=== PATIENT | male | born 1980 | race Caucasian/White ===

== ENCOUNTER 2020-11-23 08:00 | Outpatient (CLI) | payer BC ==
[2020-11-23 20:02] LABS: H. PYLORIS ANTIGEN STL NEGATIVE (Negative)
== END 2020-11-23 23:59 | disposition home or self-care (01) ==
LOC: LAB.R 08:00
PROVIDERS: ATTEND Internal Medicine
DX: K21.9 Gastro-esophageal reflux disease without esophagitis (principal); K58.9 Irritable bowel syndrome, unspecified
CPT/HCPCS: 36415; 85025; 87338

== ENCOUNTER 2020-11-23 12:35 | Outpatient (CLI) | payer BC ==
[2020-11-23 14:32] LABS: BASOPHILS % (AUTO) 0.3 %; EOSINOPHILS # (AUTO) 0.1 10^3/uL (0.0-0.7); HCT - HEMATOCRIT 47.9 % (42.0-52.0); HGB - HEMOGLOBIN 16.1 g/dL (14.0-18.0); LYMPHOCYTES # (AUTO) 2.7 10^3/uL (1.5-3.5); LYMPHOCYTES % (AUTO) 45.5 %; MEAN CORPUSCULAR HGB CONC 33.6 g/dL (32.0-36.0); MEAN CORPUSCULAR VOLUME 95.2 fL (80.0-94.0); MEAN PLATELET VOLUME 9.6 fL (7.4-11.4); MONOCYTES # (AUTO) 0.3 10^3/uL (0.0-1.0); MONOCYTES % (AUTO) 5.6 %; NEUTROPHILS # (AUTO) 2.7 10^3/uL (1.5-6.6); NEUTROPHILS % (AUTO) 46.3 %; PLT - PLATELET COUNT 278 10^3/uL (130-450); RED BLOOD COUNT 5.03 10^6/uL (4.70-6.10); RED CELL DISTRIBUTION WIDTH 11.7 % (12.0-15.0); WHITE BLOOD COUNT 5.9 x10^3/uL (4.8-10.8)
== END 2020-11-23 12:36 | disposition home or self-care (01) ==
LOC: LAB.S 12:35
PROVIDERS: ATTEND Internal Medicine
DX: K21.9 Gastro-esophageal reflux disease without esophagitis (principal); K58.9 Irritable bowel syndrome, unspecified
CPT/HCPCS: 36415; 85025

== ENCOUNTER 2021-05-07 11:42 | Outpatient (CLI) | payer BC ==
[2021-05-07 15:34] LABS: CHOLESTEROL 258 mg/dL; HDL CHOLESTEROL 43 mg/dL; LDL CHOLESTEROL,CALCULATED 198 mg/dL; LDL/HDL RATIO 4.6 (<3.6); TRIGLYCERIDES 83 mg/dL; VLDL CHOLESTEROL 17 mg/dL
[2021-05-07 20:49] LABS: ESTIMATED AVERAGE GLUCOSE 111 mg/dL (70-100); HEMOGLOBIN A1c% 5.5 % (4.27-6.07)
[2021-05-08 10:00] LABS: HEPATITIS C ANTIBODY NON-REACTIVE (NON-REACTIVE)
== END 2021-05-07 11:43 | disposition home or self-care (01) ==
LOC: LAB.S 11:42
PROVIDERS: ATTEND Internal Medicine
DX: Z12.5 Encounter for screening for malignant neoplasm of prostate (principal); Z13.1 Encounter for screening for diabetes mellitus; Z11.59 Encounter for screening for other viral diseases; Z13.220 Encounter for screening for lipoid disorders
CPT/HCPCS: 36415; 80061; 83036; 83721; 84153; 86803

== ENCOUNTER 2021-09-19 18:39 | Outpatient (CLI) | payer BC ==
--- NOTE | 2021-09-20 09:13 | Ultrasound Report ---
PROCEDURE: Testicle INDICATIONS: MASS OF TESTICLE TECHNIQUE: Real-time scanning was performed of the scrotum and testicles, with image documentation. Color and p ulse Doppler interrogation was performed of both testicles. COMPARISON: None. FINDINGS: Right hemiscrotum: The testis measures 4.7 x 2.1 x 3.5 cm. Homogeneous echotexture. A few scatter ed microcalcifications are seen. Normal venous and arterial flow. Small right hydrocele and varicocele. No significant abnormality of the epididymis. Left hemiscrotum: The testis measures 4.5 x 2.4 x 3.2 cm. Homogeneous echotexture. Normal venous and arterial flow. No hydrocele. Small varicocele. No significant abnormality of the epididymis. IMPRESSION: 1.Small bilateral varicoceles. 2.Small right hydrocele. 3.Limited right microlithiasis. Correlation with patient's risk factors to determine follow-up. Reviewed by: Parker Torre MD on 09/20/2021 9:11 AM PDT Approved by: Parker Torre MD on 09/20/2021 9:11 AM PDT Station ID: [id number]
== END 2021-09-19 18:40 | disposition home or self-care (01) ==
LOC: DI 18:39
PROVIDERS: ATTEND Urology
DX: N50.89 Other specified disorders of the male genital organs (principal); I86.1 Scrotal varices; N43.3 Hydrocele, unspecified

== ENCOUNTER 2022-12-06 13:41 | Outpatient (CLI) | payer BC ==
--- NOTE | 2022-12-06 14:33 | XRAY Report ---
PROCEDURE: Chest 2 View X-Ray INDICATIONS: CHEST PAIN TECHNIQUE: 2 views of the chest were acquired. COMPARISON: None. FINDINGS: Surgical changes and devices: None. Lungs and pleura: No pleural effusions or pneumothorax. Lungs are clear. Mediastinum: Mediastinal contours appear normal. Heart size is normal. Bones and chest wall: No suspicious bony lesions. Overlying soft tissues appear unremarkable. IMPRESSION: No acute cardiopulmonary process. Reviewed by: Estela Meng MD on 12/06/2022 2:31 PM PDT Approved by: Estela Meng MD on 12/06/2022 2:31 PM PDT Station ID: [id number]
== END 2022-12-06 23:59 | disposition home or self-care (01) ==
LOC: DI.S 13:41
PROVIDERS: ATTEND Physician Assistant Medical
DX: R07.9 Chest pain, unspecified (principal)

== ENCOUNTER 2023-05-01 12:35 | Emergency (ER) | payer BC ==
[2023-05-01 13:22] LABS: BASOPHILS % (AUTO) 0.3 %; EOSINOPHILS % (AUTO) 0.5 %; HCT - HEMATOCRIT 48.5 % (42.0-52.0); HGB - HEMOGLOBIN 16.5 g/dL (14.0-18.0); LYMPHOCYTES # (AUTO) 1.5 10^3/uL (1.5-3.5); LYMPHOCYTES % (AUTO) 18.7 %; MEAN CORPUSCULAR HEMOGLOBIN 30.9 pg (27.0-31.0); MEAN CORPUSCULAR VOLUME 90.8 fL (80.0-94.0); MEAN PLATELET VOLUME 9.2 fL (7.4-11.4); MONOCYTES # (AUTO) 0.7 10^3/uL (0.0-1.0); MONOCYTES % (AUTO) 8.7 %; NEUTROPHILS # (AUTO) 5.7 10^3/uL (1.5-6.6); NEUTROPHILS % (AUTO) 71.4 %; PLT - PLATELET COUNT 233 10^3/uL (130-450); RED BLOOD COUNT 5.34 10^6/uL (4.70-6.10); RED CELL DISTRIBUTION WIDTH 13.3 % (12.0-15.0)
--- NOTE | 2023-05-01 13:26 | XRAY Report ---
PROCEDURE: Chest 1 View X-Ray INDICATIONS: Chest pain TECHNIQUE: One view of the chest was acquired. COMPARISON: 12/06/2022 FINDINGS: Surgical changes and devices: Remote CABG. Lungs and pleura: No pleural effusions or pneumothorax. Lungs are clear. Mediastinum: Mediastinal contours appear normal. Heart size is normal. Bones and chest wall: No suspicious bony lesions. Overlying soft tissues appear unremarkable. IMPRESSION: No acute cardiopulmonary process. Reviewed by: David Zamora MD on 05/01/2023 1:24 PM PDT Approved by: David Zamora MD on 05/01/2023 1:24 PM PDT Station ID: [id number]
[2023-05-01 13:39] LABS: ALBUMIN 4.9 g/dL (3.2-5.5); ALBUMIN/GLOBULIN RATIO 1.5 (1.0-2.2); BILIRUBIN,TOTAL 1.2 mg/dL (0.2-1.0); CREATININE 0.8 mg/dL (0.6-1.3); TOTAL PROTEIN 8.2 g/dL (6.4-8.9)
--- NOTE | 2023-05-01 14:12 | ED Physician Documentation ---
PD HPI CHEST PAIN - Stated complaint Stated Complaint: CHEST PX,NAUSEA,SOA,CHILLS - Chief complaint Chief Complaint: Cardiac - History obtained from History obtained from: Patient - Additional information Additional information: 42-year-old male with history of coronary artery disease status post reported 6- vessel CABG in 12/2022 presents by private vehicle from home for central substernal chest pressure. Pain is worse with movement and exertion, better when resting. Patient takes daily Plavix and Entresto, he reports compliance with all of his prescribed medications. While resting in ED bed patient is pain-free. Review of Systems Constitutional: denies: Fever, Chills Ears: denies: Loss of hearing, Ear pain, Drainage/discharge Nose: denies: Rhinorrhea / runny nose Throat: denies: Dental pain / toothache, Oral lesions / sores, Sore throat Cardiac: reports: Chest pain / pressure. denies: Palpitations, Calf pain Respiratory: denies: Dyspnea, Cough, Wheezing GI: denies: Abdominal Pain, Nausea, Vomiting Musculoskeletal: denies: Neck pain, Back pain, Extremity pain PD PAST MEDICAL HISTORY - Allergies Allergies/Adverse Reactions: Allergies Allergy/AdvReac Type Severity Reaction Status Date / Time No Known Drug Allergies Allergy Verified 05/01/23 12:45 PD ED PE NORMAL - Vitals Vital signs reviewed: Yes - General General: Alert and oriented X 3, No acute distress, Well developed/nourished - HEENT HEENT: Atraumatic - Neck Neck: Supple, no meningeal sign - Cardiac Cardiac: Strong equal pulses, Other (tachycardia) - Respiratory Respiratory: No respiratory distress, Clear bilaterally - Abdomen Abdomen: Soft, Non tender, Non distended - Derm Derm: Normal color, Warm and dry, No rash - Extremities Extremities: No deformity, No tenderness to palpate, Normal ROM s pain, No edema - Neuro Neuro: Alert and oriented X 3, toe closing machine tender 2-12 intact, No motor deficit, Normal speech - Psych Psych: Normal mood, Normal affect Results - Vitals Vitals: Vital Signs - 24 hr 05/01/23 05/01/23 05/01/23 12:39 12:44 13:14 Temperature 36.8 C 36.8 C Heart Rate 122 H 122 H 104 H Respiratory 15 15 18 Rate Blood Pressure 120/82 H 120/82 H 118/100 H O2 Saturation 97 97 96 05/01/23 05/01/23 05/01/23 14:00 14:30 15:00 Temperature Heart Rate 110 H 96 96 Respiratory 19 15 16 Rate Blood Pressure 113/87 H 116/89 H 131/81 H O2 Saturation 96 100 100 05/01/23 05/01/23 05/01/23 15:30 16:00 17:00 Temperature 36.8 C 36.5 C Heart Rate 92 111 H 95 Respiratory 16 24 17 Rate Blood Pressure 130/80 131/81 H 125/79 O2 Saturation 100 96 100 05/01/23 05/01/23 05/01/23 17:30 18:00 18:30 Temperature 36.8 C Heart Rate 94 95 98 Respiratory 24 15 22 Rate Blood Pressure 125/86 H 130/90 H 127/84 H O2 Saturation 99 99 99 05/01/23 05/01/23 05/01/23 19:00 19:30 20:00 Temperature 36.8 C 36.8 C Heart Rate 100 100 99 Respiratory 12 20 24 Rate Blood Pressure 117/82 H 125/87 H 124/85 H O2 Saturation 97 97 97 05/01/23 21:00 Temperature Heart Rate 100 Respiratory 23 Rate Blood Pressure 123/79 O2 Saturation 96 Oxygen O2 Source Room air - EKG (time done) 1250 EKG releavant findings:: EKG personally interpreted by author of this note. Relevant findings are: Rate: Rate (enter#) (115), Tachy Rhythm: Sinus tachycardia [place]: Normal Ischemia: ST depression (V3-V4) Compare to prior EKG: Old EKG unavailable - Labs Labs: Laboratory Tests 05/01/23 05/01/23 05/01/23 13:15 13:15 13:15 WBC 8.0 RBC 5.34 Hgb 16.5 Hct 48.5 MCV 90.8 MCH 30.9 MCHC 34.0 RDW 13.3 Plt Count 233 MPV 9.2 Neut # (Auto) 5.7 Lymph # (Auto) 1.5 [place] # (Auto) 0.7 Eos # (Auto) 0.0 Baso # (Auto) 0.0 Absolute Nucleated RBC 0.00 Nucleated RBC % 0.0 PT 12.8 H INR 1.2 APTT 34.4 H Sodium 136 Potassium 4.0 Chloride 100 L Carbon Dioxide 25 Anion Gap 11.0 BUN 16 Creatinine 0.8 Estimated GFR (MDRD) 107 Glucose 105 H Calcium 10.0 Total Bilirubin 1.2 H AST 42 ALT 101 H Alkaline Phosphatase 138 H Troponin I High Sens 1889.0 H* Total Protein 8.2 Albumin 4.9 Globulin 3.3 Albumin/Globulin Ratio 1.5 Lipase 22 PD Medical Decision Making - ED course Complexity details: reviewed old records, reviewed results, re-evaluated patient, considered differential, d/w patient, d/w family ED course: Otherwise well-appearing patient with known coronary disease presenting for chest pain. EKG shows depressions in leads V3 through V6, however there are no priors for comparison. Labs and chest x-ray ordered. Chest x-ray negative for acute findings. Laboratory work is remarkable for a troponin of 1889. Heparin bolus and drip initiated. Call placed to [facility] as this is where patient has received his recent CABG and coronary care. On-call radio intelligence operator stated that he would clarify plan with access tech to see if patient needed to go straight to the [facility] or if he could be transferred for urgent catheterization tomorrow. 1640: Case discussed with access tech Dr. Durant, who agreed with heparin and stated that patient to be transferred to a hospital bed for urgent catheterization tomorrow. Pending bed placement - Critical Care Time(min): 38 Time Includes: Direct patient care, Review records, Reassess patient, Document care, Coordinate care, Medical consult, Family consult for tx dec Data interpretation: Labs, CXR, Prior EKG, Cardiac output Procedures excluded from critical care time: See progress note Departure - Departure Disposition: 02 Transfer Acute Care Hosp Condition: Stable Forms: PCP List
[2023-05-01] MEDS ORDERED: SODIUM CHLORIDE 0.9% 1,000 ML IV STA (14:29)
[2023-05-01] MEDS ORDERED: METOPROLOL 5 MG/5 ML VIAL IVP STA (14:29)
[2023-05-01] MEDS ORDERED: HEPARIN 25000UNITS/500ML (D5W) 25,000 UNIT/500 ML BAG IV SCH (15:00)
[2023-05-01 16:44] LABS: PARTIAL THROMBOPLASTIN TIME 34.4 secs (24.9-33.3)
[2023-05-01 16:49] LABS: INR 1.2 (0.8-1.2); PT - PROTHROMBIN TIME 12.8 secs (9.9-12.6)
[2023-05-02 00:36] VITALS: BP 132/84; O2SAT 98
== END 2023-05-02 00:34 | disposition short-term general hospital (02) ==
LOC: ED 12:35
DX: I21.4 Non-ST elevation (NSTEMI) myocardial infarction (principal); Z95.2 Presence of prosthetic heart valve
CPT/HCPCS: 36415; 80053; 83690; 84484; 85025; 85610; 85730; 93005; 96374; 96375; 99291